=== PATIENT | female | born 1945 | race Caucasian/White ===

== ENCOUNTER → 2017-12-01 12:39 | Outpatient (CLI) | payer MEDICARE, SELFPAY ==
--- NOTE | 2017-12-01 12:40 | DI.MG.S_ITS ---
BILATERAL DIGITAL SCREENING MAMMOGRAM 3D/2D WITH CAD: 12/01/2017 CLINICAL: Routine screening. Comparison is made to exams dated: 10/25/2016 mammogram, 10/19/2015 mammogram, and 10/13/2014 mammogram - [facility]. The tissue of both breasts is heterogeneously dense. This may lower the sensitivity of mammography. Current study was also evaluated with a Computer Aided Detection (CAD) system. Bilateral breast implants are stable. No significant masses, calcifications, or other findings are seen in either breast. There has been no significant interval change. IMPRESSION: NEGATIVE There is no mammographic evidence of malignancy. A 1 year screening mammogram is recommended. This exam was interpreted at Station ID: [id number]. NOTE: For mammograms, a report in lay terms will be sent to the patient. Approximately 15% of breast malignancies will not be visualized mammographically. In the management of a palpable breast mass, a negative mammogram must not discourage biopsy of a clinically suspicious lesion. Electronically Signed By: Phil warren/brigitte:12/01/2017 16:47:24 letter sent: Normal Exam ACR BI-RADS Category 1: Negative 3341F
== END ==
PROVIDERS: Family Provider Family Medicine; PCP Family Medicine; Visit Provider Family Medicine
DX: Z12.31 Encounter for screening mammogram for malignant neoplasm of breast (principal)
CPT/HCPCS: 77063; 77067

== ENCOUNTER → 2017-12-04 07:08 | Outpatient (CLI) | payer MEDICARE, SELFPAY ==
[2017-12-04 08:17] LABS: Cholesterol 211 mg/dL (140-199); HDL Cholesterol 59 mg/dL (40-60); LDL Cholesterol Calculated 137 mg/dL (<100); Triglycerides 76 mg/dL (35-150)
[2017-12-04 08:18] LABS: Add Manual Diff / Slide Review NO; Basophils Percent Auto 0.9 % (0-2); Eosinophils Percent Auto 2.5 % (2-4); Hematocrit 43.1 % (36-46); Hemoglobin 14.7 g/dL (12.0-16.0); Lymphocytes Percent Auto 45.8 % (25-40); Mean Corpuscular HGB Conc 34.1 % (30-36); Mean Corpuscular Volume 96.9 fL (80-100); Monocytes Percent Auto 9.1 % (3-14); Neutrophils Absolute Auto 2200 /uL (3000-5900); Neutrophils Percent Auto 41.7 % (50-75); Platelet Count 245 X10^3/uL (150-400); Red Blood Cell Count 4.45 X10^6/uL (4.0-5.2); Red Cell Distribution Width 12.9 % (11.6-14.8); White Blood Cell Count 5.2 X10^3/uL (4.5-11.0)
[2017-12-04 09:37] LABS: TSH w/ Reflex to FT4 2.53 uIU/mL (0.47-4.68)
[2017-12-06 15:07] LABS: Parathyroid Hormone Int 63 pg/mL (14-64)
== END ==
PROVIDERS: PCP Family Medicine; Visit Provider Family Medicine
DX: E78.5 Hyperlipidemia, unspecified (principal); E03.9 Hypothyroidism, unspecified; E21.3 Hyperparathyroidism, unspecified
CPT/HCPCS: 36415; 80061; 83970; 84443; 85025

== ENCOUNTER → 2017-12-10 07:05 | Outpatient (CLI) | payer MEDICARE, SELFPAY ==
[2017-12-10 09:49] LABS: Alanine Aminotransferase 27 IU/L (9-52); Albumin 4.5 g/dL (3.5-5.0); Albumin Globulin Ratio 1.5 (1.0-2.8); Alkaline Phosphatase 65 U/L (38-126); Aspartate Aminotransferase 29 IU/L (14-36); BUN Creatinine Ratio 22.9 (6-22); Bilirubin Total 0.7 mg/dL (0.2-1.3); Blood Urea Nitrogen 16 mg/dL (7-17); Calcium 9.5 mg/dL (8.4-10.2); Carbon Dioxide 32 mmol/L (22-32); Chloride 100 mmol/L (98-107); Estimated Glomerular Filt Rate > 60.0 mL/min (>60); Glucose 85 mg/dL (80-110); HEMOLYSIS 16 (0-50); Potassium 4.3 mmol/L (3.4-5.1); Sodium 142 mmol/L (137-145); Total Protein 7.5 g/dL (6.3-8.2)
[2017-12-10 10:47] LABS: Free T3, Triiodothyronine Free 3.62 pg/mL (2.77-5.27); Free T4, Direct Thyroxine 1.34 ng/dL (0.78-2.19)
== END ==
PROVIDERS: Family Provider Family Medicine; PCP Family Medicine; Visit Provider Family Medicine
DX: E03.9 Hypothyroidism, unspecified (principal); E78.5 Hyperlipidemia, unspecified
CPT/HCPCS: 36415; 80053; 84439; 84481

== ENCOUNTER → 2018-02-18 09:48 | Outpatient (CLI) | payer MEDICARE, SELFPAY ==
[2018-02-20 18:36] LABS: Fecal Immunochemical Test NOT DETECTED
== END ==
PROVIDERS: Family Provider Family Medicine; PCP Family Medicine; Visit Provider Registered Nurse
DX: Z12.11 Encounter for screening for malignant neoplasm of colon (principal)
CPT/HCPCS: 82274

== ENCOUNTER → 2018-03-02 07:11 | Outpatient (CLI) | payer MEDICARE, SELFPAY ==
[2018-03-02 09:39] LABS: Cholesterol 219 mg/dL (140-199); HDL Cholesterol 64 mg/dL (40-60); LDL Cholesterol Calculated 142 mg/dL (<100); Triglycerides 66 mg/dL (35-150)
[2018-03-02 09:50] LABS: Free T3, Triiodothyronine Free 3.05 pg/mL (2.77-5.27); Free T4, Direct Thyroxine 1.14 ng/dL (0.78-2.19)
== END ==
PROVIDERS: PCP Family Medicine; Visit Provider Family Medicine
DX: E03.9 Hypothyroidism, unspecified (principal); E78.5 Hyperlipidemia, unspecified
CPT/HCPCS: 36415; 80061; 84439; 84443; 84481

== ENCOUNTER → 2018-03-04 14:13 | Outpatient (CLI) | payer MEDICARE, SELFPAY ==
--- NOTE | 2018-03-04 14:15 | DI.RAD.S_ITS ---
PROCEDURE: XR KNEE LT 3V INDICATIONS: Knee pain TECHNIQUE: 3 views of the knee were acquired. COMPARISON: None. FINDINGS: Bones: No fractures or dislocations. No suspicious bony lesions. Mild arthritic change all 3 compartments, no trauma. Soft tissues: No joint effusion. No suspicious soft tissue calcifications. 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 Dictated by: Bandar Olmedo M.D. on 03/09/2018 at 12:10 Approved by: Bandar Olmedo M.D. on 03/09/2018 at 12:10
--- NOTE | 2018-03-04 14:15 | DI.RAD.S_ITS ---
PROCEDURE: XR KNEE RT 3V INDICATIONS: Knee pain TECHNIQUE: 3 views of the knee were acquired. COMPARISON: None. FINDINGS: Bones: No fractures or dislocations. No suspicious bony lesions. Soft tissues: No joint effusion. No suspicious soft tissue calcifications. IMPRESSION: No trauma found. Minimal thinning of the medial compartment joint interspace. This indicates presence of only a mild degree of degenerative osteoarthritis. Dictated by: Bandar Olmedo M.D. on 03/04/2018 at 15:07 Approved by: Bandar Olmedo M.D. on 03/04/2018 at 15:07
== END ==
PROVIDERS: Family Provider Family Medicine; PCP Family Medicine; Visit Provider Registered Nurse
DX: M25.561 Pain in right knee (principal); M25.562 Pain in left knee; M17.0 Bilateral primary osteoarthritis of knee
CPT/HCPCS: 73562

== ENCOUNTER → 2018-07-17 12:47 | Outpatient (CLI) | payer MEDICARE, SELFPAY ==
[2018-07-17 14:42] LABS: Alanine Aminotransferase 27 IU/L (9-52); Albumin 4.3 g/dL (3.5-5.0); Albumin Globulin Ratio 1.4 (1.0-2.8); Alkaline Phosphatase 63 U/L (38-126); Aspartate Aminotransferase 26 IU/L (14-36); BUN Creatinine Ratio 31.7 (6-22); Bilirubin Total 0.2 mg/dL (0.2-1.3); Blood Urea Nitrogen 19 mg/dL (7-17); Calcium 9.2 mg/dL (8.4-10.2); Carbon Dioxide 30 mmol/L (22-32); Chloride 99 mmol/L (98-107); Estimated Glomerular Filt Rate > 60.0 mL/min (>60); Globulin 3.1 g/dL (1.7-4.1); Glucose 83 mg/dL (80-110); HEMOLYSIS < 15 (0-50); Potassium 3.9 mmol/L (3.4-5.1); Sodium 139 mmol/L (137-145); Total Protein 7.4 g/dL (6.3-8.2)
[2018-07-17 15:01] LABS: Free T3, Triiodothyronine Free 3.09 pg/mL (2.77-5.27)
[2018-07-17 15:14] LABS: Thyroid Stimulating Hormone 1.38 uIU/mL (0.47-4.68)
[2018-07-17 15:15] LABS: Vitamin D 25 Hydroxy (D3) 50.2 ng/mL (30.0-100.0)
[2018-07-21 14:08] LABS: Parathyroid Hormone Int 52 pg/mL (14-64)
== END ==
PROVIDERS: Family Provider Family Medicine; PCP Family Medicine; Visit Provider Family Medicine
DX: M85.852 Other specified disorders of bone density and structure, left thigh (principal); Z78.0 Asymptomatic menopausal state; Z87.891 Personal history of nicotine dependence
CPT/HCPCS: 36415; 77080; 80053; 82306; 83970; 84439; 84443; 84481

== ENCOUNTER → 2018-12-14 12:45 | Outpatient (CLI) | payer MEDICARE, SELFPAY ==
--- NOTE | 2018-12-14 | DI.MG.S_ITS ---
BILATERAL DIGITAL SCREENING MAMMOGRAM 3D/2D WITH CAD WITH AUGMENTATION: 12/14/2018 CLINICAL: Routine screening. Comparison is made to exams dated: 12/01/2017 mammogram, 10/25/2016 mammogram, and 10/19/2015 mammogram - [facility]. The tissue of both breasts is heterogeneously dense. This may lower the sensitivity of mammography. Current study was also evaluated with a Computer Aided Detection (CAD) system. Bilateral breast implants are stable. No significant masses, calcifications, or other findings are seen in either breast. There has been no significant interval change. IMPRESSION: NEGATIVE There is no mammographic evidence of malignancy. A 1 year screening mammogram is recommended. This exam was interpreted at Station ID: [id number]. NOTE: For mammograms, a report in lay terms will be sent to the patient. Approximately 15% of breast malignancies will not be visualized mammographically. In the management of a palpable breast mass, a negative mammogram must not discourage biopsy of a clinically suspicious lesion. Electronically Signed By: Susan motley/brigitte:12/14/2018 17:43:43 letter sent: Normal Exam ACR BI-RADS Category 1: Negative 3341F
== END ==
PROVIDERS: Family Provider Family Medicine; PCP Family Medicine; Visit Provider Family Medicine
DX: Z12.31 Encounter for screening mammogram for malignant neoplasm of breast (principal)
CPT/HCPCS: 77063; 77067

== ENCOUNTER → 2019-02-04 09:40 | Outpatient (CLI) | payer MEDICARE, SELFPAY ==
[2019-02-04 09:45] LABS: Bacteria Urine None Seen
[2019-02-04 11:00] LABS: Appearance Urine UA SL CLOUDY; Bilirubin Urine UA NEGATIVE (NEGATIVE); Color Urine UA YELLOW; Glucose Urine UA NEGATIVE (Negative); Ketones Urine UA NEGATIVE (NEGATIVE); Leukocyte Esterase Urine UA 3+ (NEGATIVE); Nitrite Urine UA NEGATIVE (Negative); Occult Blood Urine UA 3+ (Negative); Protein Urine UA NEGATIVE (Negative); Specific Gravity Urine UA <=1.005 (1.000-1.035); Urobilinogen Urine UA 0.2 E.U./dL (0.2)
[2019-02-04 11:03] LABS: pH Urine UA 7.5 (4.5-8.0)
[2019-02-04 11:10] LABS: Culture Indicated Urine Cult Not Indicated; RBC Urine 10-30/HPF (0-5/HPF); Squamous Epithelial Cell Urine 10-30 /HPF (0-5/HPF); Transitional Epi Cells Urine 1-5/HPF (0-5/HPF); WBC Urine 10-30/HPF (0-5/HPF)
== END ==
PROVIDERS: PCP Family Medicine; Visit Provider Specialist
DX: R39.9 Unspecified symptoms and signs involving the genitourinary system (principal)
CPT/HCPCS: 81001

== ENCOUNTER → 2019-02-15 11:25 | Outpatient (CLI) | payer MEDICARE, SELFPAY ==
[2019-02-15 12:25] LABS: Appearance Urine UA CLEAR; Bilirubin Urine UA NEGATIVE (NEGATIVE); Color Urine UA YELLOW; Glucose Urine UA NEGATIVE (Negative); Ketones Urine UA NEGATIVE (NEGATIVE); Leukocyte Esterase Urine UA 3+ (NEGATIVE); Nitrite Urine UA NEGATIVE (Negative); Occult Blood Urine UA 3+ (Negative); Protein Urine UA NEGATIVE (Negative); Specific Gravity Urine UA <=1.005 (1.000-1.035); Urobilinogen Urine UA 0.2 E.U./dL (0.2)
[2019-02-15 12:49] LABS: Bacteria Urine Moderate (10-30); Culture Indicated Urine Cult Not Indicated; RBC Urine 5-10/HPF (0-5/HPF); Squamous Epithelial Cell Urine 1-5 /HPF (0-5/HPF); Urine Comments CX ALREADY ORDERED; WBC Urine 10-30/HPF (0-5/HPF)
== END ==
PROVIDERS: PCP Family Medicine; Visit Provider Specialist
DX: R30.0 Dysuria (principal)
CPT/HCPCS: 81001; 87077; 87086; 87186

== ENCOUNTER → 2019-03-19 15:06 | Outpatient (CLI) | payer MEDICARE, SELFPAY ==
[2019-03-19 15:13] LABS: Bacteria Urine None Seen
[2019-03-19 15:31] LABS: Appearance Urine UA CLEAR; Bilirubin Urine UA NEGATIVE (NEGATIVE); Color Urine UA YELLOW; Glucose Urine UA NEGATIVE (Negative); Ketones Urine UA NEGATIVE (NEGATIVE); Leukocyte Esterase Urine UA NEGATIVE (NEGATIVE); Nitrite Urine UA NEGATIVE (Negative); Occult Blood Urine UA 1+ (Negative); Protein Urine UA NEGATIVE (Negative); Specific Gravity Urine UA <=1.005 (1.000-1.035); Urobilinogen Urine UA 0.2 E.U./dL (0.2)
[2019-03-19 15:43] LABS: Culture Indicated Urine Cult Not Indicated; RBC Urine 0-1/HPF (0-5/HPF); Squamous Epithelial Cell Urine 0-1 /HPF (0-5/HPF); WBC Urine 0-1/HPF (0-5/HPF)
== END ==
PROVIDERS: PCP Family Medicine; Visit Provider Specialist
DX: R39.9 Unspecified symptoms and signs involving the genitourinary system (principal)
CPT/HCPCS: 81001

== ENCOUNTER → 2019-04-20 07:11 | Outpatient (CLI) | payer MEDICARE, SELFPAY ==
[2019-04-20 08:13] LABS: Cholesterol 208 mg/dL (140-199); HDL Cholesterol 54 mg/dL (40-60); LDL Cholesterol Calculated 143 mg/dL (<100); Triglycerides 56 mg/dL (35-150); VLDL Cholesterol Calculated 11 mg/dL (2-30)
== END ==
PROVIDERS: PCP Family Medicine; Visit Provider Internal Medicine Cardiovascular Disease
DX: E78.2 Mixed hyperlipidemia (principal)
CPT/HCPCS: 36415; 80061

== ENCOUNTER → 2019-06-18 14:07 | Outpatient (CLI) | payer MEDICARE, SELFPAY ==
[2019-06-18 16:25] LABS: Thyroid Stimulating Hormone 2.23 uIU/mL (0.47-4.68)
== END ==
PROVIDERS: PCP Family Medicine; Visit Provider Family Medicine
DX: E03.9 Hypothyroidism, unspecified (principal); E55.9 Vitamin D deficiency, unspecified; L85.3 Xerosis cutis; R53.83 Other fatigue; Z90.49 Acquired absence of other specified parts of digestive tract; Z98.890 Other specified postprocedural states
CPT/HCPCS: 84443

== ENCOUNTER → 2019-06-29 09:40 | Outpatient (CLI) | payer MEDICARE, SELFPAY ==
[2019-07-01 13:55] LABS: Fecal Immunochemical Test NOT DETECTED (NOT DETECTED)
== END ==
PROVIDERS: PCP Family Medicine; Referring Provider Nurse Practitioner; Visit Provider Nurse Practitioner
DX: K92.1 Melena (principal)
CPT/HCPCS: 82274

== ENCOUNTER → 2020-01-14 14:24 | Outpatient (CLI) | payer MEDICARE, SELFPAY ==
--- NOTE | 2020-01-14 | DI.MG.S_ITS ---
BILATERAL DIGITAL SCREENING MAMMOGRAM 3D/2D WITH CAD WITH AUGMENTATION: 01/14/2020 CLINICAL: Routine screening. Comparison is made to exams dated: 12/14/2018 mammogram, 12/01/2017 mammogram, and 10/25/2016 mammogram - [facility]. The tissue of both breasts is heterogeneously dense. This may lower the sensitivity of mammography. Current study was also evaluated with a Computer Aided Detection (CAD) system. Bilateral breast implants are stable. No significant masses, calcifications, or other findings are seen in either breast. There has been no significant interval change. IMPRESSION: NEGATIVE There is no mammographic evidence of malignancy. A 1 year screening mammogram is recommended. This exam was interpreted at Station ID: [id number]. NOTE: For mammograms, a report in lay terms will be sent to the patient. Approximately 15% of breast malignancies will not be visualized mammographically. In the management of a palpable breast mass, a negative mammogram must not discourage biopsy of a clinically suspicious lesion. Electronically Signed By: Madhu Romano M.D., jr/brigitte:01/14/2020 17:30:31 letter sent: Normal Exam ACR BI-RADS Category 1: Negative 3341F
== END ==
PROVIDERS: PCP Family Medicine; Referring Provider Family Medicine; Visit Provider Family Medicine
DX: Z12.31 Encounter for screening mammogram for malignant neoplasm of breast (principal)
CPT/HCPCS: 77063; 77067

== ENCOUNTER → 2020-03-23 10:56 | Outpatient (CLI) | payer MEDICARE, SELFPAY ==
[2020-03-24 01:49] LABS: COVID19 Sendout Not Detected (Not Detect)
== END ==
PROVIDERS: PCP Family Medicine; Visit Provider Physician Assistant
DX: Z11.59 Encounter for screening for other viral diseases (principal)
CPT/HCPCS: 87635

== ENCOUNTER → 2020-06-26 06:59 | Outpatient (CLI) | payer MEDICARE, SELFPAY ==
[2020-06-26 09:12] LABS: Alanine Aminotransferase 26 IU/L (<35); Albumin 4.5 g/dL (3.5-5.0); Albumin Globulin Ratio 1.5 (1.0-2.8); Alkaline Phosphatase 66 U/L (38-126); Aspartate Aminotransferase 31 IU/L (14-36); BUN Creatinine Ratio 27.6 (6-22); Bilirubin Total 0.5 mg/dL (0.2-1.3); Blood Urea Nitrogen 16 mg/dL (7-17); Calcium 9.2 mg/dL (8.4-10.2); Carbon Dioxide 32 mmol/L (22-32); Chloride 101 mmol/L (98-107); Cholesterol 211 mg/dL (140-199); Estimated Glomerular Filt Rate > 60.0 mL/min (>60); Globulin 3.1 g/dL (1.7-4.1); Glucose 96 mg/dL (80-110); HDL Cholesterol 63 mg/dL (40-60); HEMOLYSIS < 15 (0-50); LDL Cholesterol Calculated 135 mg/dL (<100); Potassium 4.2 mmol/L (3.4-5.1); Sodium 138 mmol/L (137-145); Total Protein 7.6 g/dL (6.3-8.2); Triglycerides 66 mg/dL (35-150)
[2020-06-26 09:47] LABS: Vitamin D 25 Hydroxy (D3) 30.9 ng/mL (30.0-100.0)
[2020-06-26 10:02] LABS: TSH w/ Reflex to FT4 0.78 uIU/mL (0.47-4.68)
== END ==
PROVIDERS: PCP Family Medicine; Referring Provider Family Medicine; Visit Provider Family Medicine
DX: E03.9 Hypothyroidism, unspecified (principal); E55.9 Vitamin D deficiency, unspecified; E78.5 Hyperlipidemia, unspecified; M85.80 Other specified disorders of bone density and structure, unspecified site
CPT/HCPCS: 36415; 80053; 80061; 82306; 84443

== ENCOUNTER → 2021-05-08 10:14 | Outpatient (CLI) | payer MEDICARE, SELFPAY ==
--- NOTE | 2021-05-08 | DI.MG.S_ITS ---
BILATERAL DIGITAL SCREENING MAMMOGRAM 3D/2D WITH CAD WITH AUGMENTATION: 05/08/2021 CLINICAL: Routine screening. Comparison is made to exams dated: 01/14/2020 mammogram, 12/14/2018 mammogram, and 12/01/2017 mammogram - [facility]. There are scattered fibroglandular elements in both breasts. Current study was also evaluated with a Computer Aided Detection (CAD) system. Bilateral breast implants are stable. No significant masses, calcifications, or other findings are seen in either breast. There has been no significant interval change. IMPRESSION: NEGATIVE There is no mammographic evidence of malignancy. A 1 year screening mammogram is recommended. This exam was interpreted at Station ID: [id number]. NOTE: For mammograms, a report in lay terms will be sent to the patient. Approximately 15% of breast malignancies will not be visualized mammographically. In the management of a palpable breast mass, a negative mammogram must not discourage biopsy of a clinically suspicious lesion. Electronically Signed By: Susan motley/brigitte:05/08/2021 12:24:13 letter sent: Normal Exam ACR BI-RADS Category 1: Negative 3341F
== END ==
PROVIDERS: PCP Family Medicine; Referring Provider Family Medicine; Visit Provider Family Medicine
DX: Z12.31 Encounter for screening mammogram for malignant neoplasm of breast (principal)
CPT/HCPCS: 77063; 77067

== ENCOUNTER → 2021-07-02 08:17 | Outpatient (CLI) | payer MEDICARE, SELFPAY ==
[2021-07-02 09:45] LABS: Alanine Aminotransferase 20 IU/L (<35); Albumin 4.2 g/dL (3.5-5.0); Albumin Globulin Ratio 1.4 (1.0-2.8); Alkaline Phosphatase 59 U/L (38-126); Aspartate Aminotransferase 26 IU/L (14-36); BUN Creatinine Ratio 22.7 (6-22); Bilirubin Total 0.5 mg/dL (0.2-1.3); Blood Urea Nitrogen 15 mg/dL (7-17); Calcium 9.8 mg/dL (8.4-10.2); Carbon Dioxide 32 mmol/L (22-32); Chloride 104 mmol/L (98-107); Cholesterol 200 mg/dL (140-199); Estimated Glomerular Filt Rate > 60.0 mL/min (>60); Globulin 2.9 g/dL (1.7-4.1); Glucose 110 mg/dL (80-110); HDL Cholesterol 71 mg/dL (40-60); HEMOLYSIS < 15 (0-50); LDL Cholesterol Calculated 117 mg/dL (<100); Potassium 4.7 mmol/L (3.4-5.1); Sodium 141 mmol/L (137-145); Total Protein 7.1 g/dL (6.3-8.2); Triglycerides 58 mg/dL (35-150)
[2021-07-02 10:03] LABS: Vitamin D 25 Hydroxy (D3) 52.1 ng/mL (30.0-100.0)
[2021-07-02 10:18] LABS: TSH w/ Reflex to FT4 1.09 uIU/mL (0.47-4.68)
[2021-07-03 08:13] LABS: Fecal Immunochemical Test Negative (Negative)
== END ==
PROVIDERS: PCP Family Medicine; Referring Provider Family Medicine; Visit Provider Family Medicine
DX: E03.9 Hypothyroidism, unspecified (principal); E55.9 Vitamin D deficiency, unspecified; Z00.00 Encounter for general adult medical examination without abnormal findings
CPT/HCPCS: 36415; 80053; 80061; 82274; 82306; 84443

== ENCOUNTER → 2022-05-09 14:14 | Outpatient (CLI) | payer MEDICARE, SELFPAY ==
--- NOTE | 2022-05-09 14:19 | DI.MG.S_ITS ---
BILATERAL DIGITAL SCREENING MAMMOGRAM 3D/2D WITH CAD WITH AUGMENTATION: 05/09/2022 CLINICAL: Routine screening. Comparison is made to exams dated: 05/08/2021 mammogram, 01/14/2020 mammogram, and 12/14/2018 mammogram - [facility]. There are scattered areas of fibroglandular density in both breasts (category b / 25%-50% glandular tissue). Current study was also evaluated with a Computer Aided Detection (CAD) system. Bilateral breast implants are stable. No significant masses, calcifications, or other findings are seen in either breast. There has been no significant interval change. IMPRESSION: NEGATIVE There is no mammographic evidence of malignancy. A 1 year screening mammogram is recommended. Based on the Tyrer Cuzick model (a risk assessment model) the patient's lifetime risk is 3.4% and her 10 year risk is 0.0%. According to the ACR, ACS, and NCCN guidelines, an annual breast MRI exam along with mammogram is recommended if the patient's lifetime risk is 20% or greater. This exam was interpreted at Station ID: [id number]. NOTE: For mammograms, a report in lay terms will be sent to the patient. Approximately 15% of breast malignancies will not be visualized mammographically. In the management of a palpable breast mass, a negative mammogram must not discourage biopsy of a clinically suspicious lesion. Electronically Signed By: Johann pruitt/brigitte:05/09/2022 16:47:12 letter sent: Normal Exam ACR BI-RADS Category 1: Negative 3341F
== END ==
PROVIDERS: PCP Family Medicine; Referring Provider Family Medicine; Visit Provider Family Medicine
DX: Z12.31 Encounter for screening mammogram for malignant neoplasm of breast (principal)
CPT/HCPCS: 77063; 77067

== ENCOUNTER → 2022-07-18 07:12 | Outpatient (CLI) | payer MEDICARE, SELFPAY ==
[2022-07-18 08:11] LABS: Add Manual Diff / Slide Review NO; Basophils Absolute Auto 0 /uL (0-100); Basophils Percent Auto 0.6 % (0-2); Eosinophils Absolute Auto 100 /uL (0-450); Eosinophils Percent Auto 1.7 % (2-4); Hematocrit 45.1 % (36-46); Hemoglobin 14.9 g/dL (12.0-16.0); Lymphocytes Absolute Auto 2000 /uL (1100-4500); Lymphocytes Percent Auto 26.2 % (25-40); Mean Corpuscular HGB Conc 33.1 % (30-36); Mean Corpuscular Hemoglobin 32.4 PG (26-34); Monocytes Absolute Auto 600 /uL (0-900); Monocytes Percent Auto 7.8 % (3-14); Neutrophils Absolute Auto 4900 /uL (1500-7000); Neutrophils Percent Auto 63.7 % (50-75); Platelet Count 267 X10^3/uL (150-400); Red Cell Distribution Width 13.4 % (11.6-14.8); White Blood Cell Count 7.6 X10^3/uL (4.5-11.0)
[2022-07-18 08:56] LABS: Alanine Aminotransferase 26 IU/L (<35); Albumin 4.4 g/dL (3.5-5.0); Albumin Globulin Ratio 1.5 (1.0-2.8); Alkaline Phosphatase 63 U/L (38-126); Aspartate Aminotransferase 29 IU/L (14-36); Bilirubin Total 0.6 mg/dL (0.2-1.3); Blood Urea Nitrogen 16 mg/dL (7-17); Calcium 9.3 mg/dL (8.4-10.2); Carbon Dioxide 30 mmol/L (22-32); Chloride 99 mmol/L (98-107); Cholesterol 207 mg/dL (140-199); Estimated Glomerular Filt Rate > 60 mL/min (>60); Globulin 2.9 g/dL (1.7-4.1); Glucose 91 mg/dL (80-110); HDL Cholesterol 70 mg/dL (40-60); HEMOLYSIS < 15 (0-50); LDL Cholesterol Calculated 119 mg/dL (<100); Potassium 4.2 mmol/L (3.4-5.1); Sodium 137 mmol/L (137-145); Total Protein 7.3 g/dL (6.3-8.2); Triglycerides 90 mg/dL (35-150)
[2022-07-18 09:12] LABS: TSH w/ Reflex to FT4 1.27 uIU/mL (0.47-4.68)
== END ==
PROVIDERS: PCP Family Medicine; Referring Provider Family Medicine; Visit Provider Family Medicine
DX: E03.9 Hypothyroidism, unspecified (principal); E78.00 Pure hypercholesterolemia, unspecified; M35.00 Sjogren syndrome, unspecified; M85.80 Other specified disorders of bone density and structure, unspecified site
CPT/HCPCS: 36415; 80053; 80061; 84443; 85025

== ENCOUNTER → 2022-08-08 | Outpatient (CLI) | payer MEDICARE, SELFPAY ==
--- NOTE | 2022-08-08 10:52 | DI.RAD.S_ITS ---
Bone Density Report Name: AMAURY DURAN Age: 76 Sex: Female Ethnicity: White Date of : 1945 Indication: osteopenia; parental hip fracture; Referring Provider: YUMIKO LOWERY Study: Bone densitometry was performed. Exam Date: August 08, 2022 Accession number: [id number] Bone Density: Region BMD T-score Z-score Classification AP Spine(L1-L4) 1.034 -0.1 2.5 Normal Femoral Neck (Left) 0.689 -1.4 0.8 Osteopenia Total Hip (Left) 0.793 -1.2 0.8 Osteopenia Femoral Neck (Right) 0.851 0.0 2.3 Normal Total Hip (Right) 0.784 -1.3 0.7 Osteopenia Total Hip Mean 0.789 -1.3 0.8 Osteopenia World Health Organization criteria for BMD impression classify patients as: Normal (T-score at or above -1.0), Osteopenia (T-score between -1.0 and -2.5), or Osteoporosis (T-score at or below -2.5). 10-year Fracture Risk(1): Major Osteoporotic Fracture 20% Hip Fracture 11% Reported Risk Factors: [place] (), Neck BMD=0.689, BMI=21.9, parental fracture (1) FRAX(R) Version 3.08. Fracture probability calculated for an untreated patient. Fracture probability may be lower if the patient has received treatment. Previous Exams: -- Region Exam Age BMD T-score BMD Change BMD Change Date g/cm2 vs Baseline vs Previous -- AP Spine (L1-L4) 08/08/2022 76 1.034 -0.1 -0.050 (-4.6%)# -0.050 (-4.6%)# 07/17/2018 72 1.084 0.3 Total Hip(Left) 08/08/2022 76 0.793 -1.2 -0.011 (-1.4%)# -0.011 (-1.4%)# 07/17/2018 72 0.804 -1.1 Total Hip(Right) 08/08/2022 76 0.784 -1.3 0.030 (4.0%)# 0.030 (4.0%)# 07/17/2018 72 0.754 -1.5 -- *Denotes significance at 95% confidence level, LSC for AP Spine = 0.022 g/cm2, LSC for Total Hip = 0.027 g/cm2 # Denotes dissimilar scan types or analysis methods Impression: The patient has low bone mass, based on the Left Femoral Neck T-score. The patient has an estimated ten-year risk of hip fracture of 11% and an estimated ten-year risk of major fracture of 20%, based on the WHO FRAX algorithm. The patient has risk factors, including: parental hip fracture. No significant bone loss was observed. Discussion: BONE DENSITY IS LOW AT ONE OR MORE SKELETAL SITES. THE PATIENT'S BMD AND CLINICAL RISK FACTORS CONTRIBUTE TO THIS PATIENT'S HIGH RISK OF FRACTURE. This patient's lowest T-score is low at one or more skeletal sites. It meets the World Health Organization's (WHO) criteria for low bone mass (T-score between -1.0 and -2.5). The patient's 10-year risk of hip fracture and 10 year risk of a major osteoporotic fracture as calculated by FRAX exceeds the threshold where pharmacological therapy is recommended by the National Osteoporosis Foundation (NOF). However, all treatment decisions require clinical judgment and consideration of individual patient factors, including patient preferences, comorbidities, previous drug use, risk factors not captured in the FRAX model (e.g., frailty, falls, vitamin D deficiency, increased bone turnover, interval significant decline in bone density) and possible under or overestimation of fracture risk by FRAX. The patient should follow a healthful lifestyle (good nutrition with adequate calcium and vitamin D, and appropriate weight-bearing exercise). Follow-Up: Consider a repeat BMD and Vertebral Fracture Assessment (VFA) exam in 2 years or sooner if medically necessary, to reassess this patient's status. Reported by: LILO LARSON M.D on 08/08/2022 10:15:00 AM.
== END ==
LOC: RAD 10:52
PROVIDERS: PCP Family Medicine; Referring Provider Family Medicine; Visit Provider Family Medicine
DX: M85.852 Other specified disorders of bone density and structure, left thigh (principal); Z78.0 Asymptomatic menopausal state
CPT/HCPCS: 77080

== ENCOUNTER → 2022-08-27 13:46 | Outpatient (CLI) | payer MEDICARE, SELFPAY ==
[2022-08-28 09:59] LABS: Fecal Immunochemical Test Negative (Negative)
== END ==
PROVIDERS: PCP Family Medicine; Referring Provider Family Medicine; Visit Provider Family Medicine
DX: E03.9 Hypothyroidism, unspecified (principal); E78.00 Pure hypercholesterolemia, unspecified; M35.00 Sjogren syndrome, unspecified; M85.80 Other specified disorders of bone density and structure, unspecified site
CPT/HCPCS: 82274

== ENCOUNTER → 2023-01-08 07:38 | Outpatient (CLI) | payer MEDICARE, SELFPAY ==
[2023-01-08 08:36] LABS: Free T3, Triiodothyronine Free 3.46 pg/mL (2.77-5.27); Free T4, Direct Thyroxine 1.35 ng/dL (0.78-2.19)
[2023-01-08 08:49] LABS: TSH w/ Reflex to FT4 1.19 uIU/mL (0.47-4.68)
== END ==
PROVIDERS: PCP Family Medicine; Referring Provider Family Medicine; Visit Provider Family Medicine
DX: E03.9 Hypothyroidism, unspecified (principal)
CPT/HCPCS: 36415; 84439; 84443; 84481

== ENCOUNTER → 2023-07-02 07:54 | Outpatient (CLI) | payer MEDICARE, SELFPAY ==
--- NOTE | 2023-07-02 07:57 | DI.ECHO.S_ITS ---
[facility] +---------+ : : [address] : : : : [id number] : : : : Phone: [phone]---------+ Echocardiogram Report + + :Name: AMAURY DURAN Study Date: 07/02/2023 Height: 67 in : :[facility] ReadingLocation: Weight: 140 lb : : Gender: Female BSA: 1.7 m2 : :: 1945 Age: 77 yrs BP: 132/77 mmHg: :Reason For Study: LEFT BUNDLE BRANCH BLOCK : :Ordering Physician: DIONY, : :SUPA Performed By: Veronika Tang : :Referring: SUPA VORA : + + Interpretation Summary The left ventricle is normal in size and wall thickness. The left ventricular ejection fraction is normal. The ejection fraction is estimated to be 60-65%. The right ventricle is normal in size and function. There is mild to moderate mitral regurgitation. There is moderate tricuspid regurgitation. The right ventricular systolic pressure is estimated to be at least 37 mmHg based on an estimated right atrial pressure of 3 mm Hg. Mild atherosclerotic plaque(s) in the aortic arch. Procedure: A two-dimensional transthoracic echocardiogram with color flow and Doppler was performed. The study quality was technically adequate. There is no prior echocardiogram noted for this patient. The patient had a bundle branch block rhythm during the exam. The patient was in sinus rhythm with heart rates between 60-73 bpm during the exam. Left Ventricle: The left ventricle is normal in size and wall thickness. There is no thrombus. A false chord is noted (normal variant). The ejection fraction is estimated to be 60-65%. The left ventricular ejection fraction is normal. Septal motion is consistent with conduction abnormality. Diastolic parameters suggest a relaxation abnormality of the left ventricle, consistent with probable normal filling pressures. Right Ventricle: The right ventricle is normal in size and function. Atria: The left atrial size is normal. Right atrial size is normal. There is no Doppler evidence for an interatrial shunt. Mitral Valve: The mitral valve leaflets appear borderline thickened, but open well. There is mild to moderate mitral regurgitation. Aortic Valve: The aortic valve is trileaflet. The aortic valve opens well. There is no aortic valve stenosis. No aortic regurgitation is present. Tricuspid Valve: The tricuspid valve is normal. There is moderate tricuspid regurgitation. The right ventricular systolic pressure is estimated to be at least 37 mmHg based on an estimated right atrial pressure of 3 mm Hg. Pulmonic Valve: The pulmonic valve leaflets are thin and pliable; valve motion is normal. There is trace pulmonic regurgitation. Great Vessels: The aortic root is normal size. The dimensions of the ascending aorta are normal. Mild atherosclerotic plaque(s) in the aortic arch. The IVC is of normal diameter and collapses greater than 50% with a sniff. This suggests a low right atrial pressure of 3 mm Hg. Pericardium/ Pleura There is no pericardial effusion. There has been no significant change since the previous study. MMode/2D Measurements & Calculations LVIDd: 4.0 cm LVOT diam: 2.0 cm LVIDs: 2.9 cm Ao root diam: 3.1 cm FS: 26.2 % asc Aorta Diam: 3.0 cm IVSd: 0.67 cm Ao Arch Diam (Prox Trans): 2.3 cm LVPWd: 0.77 cm LV heck. diameter/BSA (cm/m^2): 2.3 LV sys. diameter/BSA (cm/m^2): 1.7 LA A2 area: 17.8 cm2 RA long axis: 5.2 cm LA A4 area: 13.8 cm2 RA area: 15.5 cm2 LA length (vol): 4.7 cm RA vol: 39.2 ml LA vol: 44.1 ml RA : 22.6 ml/m2 LA vol index: 25.4 ml/m2 IVC diam: 1.7 cm RVD1 (basal): 3.9 cm RVD2 (mid): 2.8 cm TAPSE: 2.0 cm Doppler Measurements & Calculations Ao V2 max: 156.3 cm/sec LVOT Max William: 133.3 cm/sec Ao V2 mean: 108.8 cm/sec LV V1 max P.1 mmHg Ao max P.8 mmHg LV V1 VTI: 29.6 cm Ao mean P.2 mmHg ERIKA(I,D): 2.8 cm2 Ao V2 VTI: 32.3 cm ERIKA(V,D): 2.6 cm2 sev ratio: 0.92 ERIKA indexed to BSA (cm^2/m^2): 1.6 MV E max william: 46.1 cm/sec TR max william: 291.6 cm/sec MV A max william: 70.3 cm/sec TR max P.0 mmHg MV E/A: 0.66 PA V2 max: 113.2 cm/sec Med Peak E' William: 4.7 cm/sec PA V2 mean: 79.7 cm/sec E/E' med: 9.7 PA mean P.8 mmHg Lat Peak E' William: 5.9 cm/sec PA pr(Accel): 39.6 mmHg E/E' lat: 7.8 E/e' average: 8.8 MV dec time: 0.34 sec SV(LVOT): 90.4 ml Reading Physician:04:32 PM
== END ==
PROVIDERS: PCP Family Medicine; Referring Provider Internal Medicine Cardiovascular Disease; Visit Provider Internal Medicine Cardiovascular Disease
DX: I08.1 Rheumatic disorders of both mitral and tricuspid valves (principal); I70.0 Atherosclerosis of aorta; I44.7 Left bundle-branch block, unspecified
CPT/HCPCS: 93306

== ENCOUNTER → 2023-07-11 | Outpatient (CLI) | payer MEDICARE, SELFPAY ==
--- NOTE | 2023-07-11 14:04 | DI.MG.S_ITS ---
Patient Name: AMAURY DURAN date: 1945 Sex: F Attending Physician: George Indications: Date: 07/11/2023 15:03 At the request of: YUMIKO LOWERY Procedure: MM screening mammo implant BI BILATERAL DIGITAL SCREENING MAMMOGRAM 3D/2D WITH CAD WITH AUGMENTATION: 07/11/2023 CLINICAL: Routine screening. Comparison is made to exams dated: 05/09/2022 mammogram, 05/08/2021 mammogram, and 01/14/2020 mammogram - [facility]. Both breasts are heterogeneously dense, which may obscure small masses (category c / 51-75% glandular tissue). Current study was also evaluated with a Computer Aided Detection (CAD) system. Bilateral breast implants are stable. No significant masses, calcifications, or other findings are seen in either breast. There has been no significant interval change. IMPRESSION: NEGATIVE There is no mammographic evidence of malignancy. A 1 year screening mammogram is recommended. Based on the Tyrer Cuzick model (a risk assessment model) the patient's lifetime risk is 4.5% and her 10 year risk is 0.0%. According to the ACR, ACS, and NCCN guidelines, an annual breast MRI exam along with mammogram is recommended if the patient's lifetime risk is 20% or greater. This exam was interpreted at Station ID: [id number]. Continued Report - Page 2 of 2 Patient Name: AMAURY DURAN date: 1945 Sex: F Attending Physician: George Indications: Date: 07/11/2023 15:03 At the request of: YUMIKO LOWERY Procedure: MM screening mammo implant BI NOTE: For mammograms, a report in lay terms will be sent to the patient. Approximately 15% of breast malignancies will not be visualized mammographically. In the management of a palpable breast mass, a negative mammogram must not discourage biopsy of a clinically suspicious lesion. Electronically Signed By: Venkatesh benton/brigitte:07/11/2023 15:03:33 letter sent: Normal Exam ACR BI-RADS Category 1: Negative 3341F
== END ==
PROVIDERS: PCP Family Medicine; Referring Provider Family Medicine; Visit Provider Family Medicine
DX: Z12.31 Encounter for screening mammogram for malignant neoplasm of breast (principal); R92.333 Mammographic heterogeneous density, bilateral breasts
CPT/HCPCS: 77063; 77067

== ENCOUNTER → 2023-07-25 06:57 | Outpatient (CLI) | payer MEDICARE, SELFPAY ==
[2023-07-25 08:16] LABS: Add Manual Diff / Slide Review NO; Basophils Absolute Auto 0 /uL (0-100); Basophils Percent Auto 0.7 % (0-2); Eosinophils Absolute Auto 100 /uL (0-450); Eosinophils Percent Auto 1.4 % (2-4); Hematocrit 42.1 % (36-46); Hemoglobin 14.2 g/dL (12.0-16.0); Lymphocytes Absolute Auto 2000 /uL (1100-4500); Lymphocytes Percent Auto 28.3 % (25-40); Mean Corpuscular HGB Conc 33.8 % (30-36); Mean Corpuscular Volume 97.9 fL (80-100); Monocytes Absolute Auto 500 /uL (0-900); Monocytes Percent Auto 6.9 % (3-14); Neutrophils Absolute Auto 4500 /uL (1500-7000); Neutrophils Percent Auto 62.7 % (50-75); Platelet Count 255 X10^3/uL (150-400); Red Cell Distribution Width 13.1 % (11.6-14.8); White Blood Cell Count 7.1 X10^3/uL (4.5-11.0)
[2023-07-25 09:32] LABS: Alanine Aminotransferase 31 IU/L (<35); Albumin 4.1 g/dL (3.5-5.0); Albumin Globulin Ratio 1.4 (1.0-2.8); Alkaline Phosphatase 53 U/L (38-126); Aspartate Aminotransferase 33 IU/L (14-36); BUN Creatinine Ratio 26.6 (6-22); Bilirubin Total 0.6 mg/dL (0.2-1.3); Blood Urea Nitrogen 17 mg/dL (7-17); Calcium 9.6 mg/dL (8.4-10.2); Carbon Dioxide 31 mmol/L (22-32); Chloride 104 mmol/L (98-107); Cholesterol 207 mg/dL (140-199); Estimated Glomerular Filt Rate > 60 mL/min (>60); Globulin 2.9 g/dL (1.7-4.1); Glucose 88 mg/dL (80-110); HDL Cholesterol 69 mg/dL (40-60); HEMOLYSIS < 15 (0-50); LDL Cholesterol Calculated 125 mg/dL (<100); Potassium 4.2 mmol/L (3.4-5.1); Sodium 139 mmol/L (137-145); Triglycerides 63 mg/dL (35-150)
[2023-07-25 09:49] LABS: Vitamin D 25 Hydroxy (D3) 45.6 ng/mL (30.0-100.0)
[2023-07-25 10:02] LABS: TSH w/ Reflex to FT4 3.66 uIU/mL (0.47-4.68)
== END ==
PROVIDERS: PCP Family Medicine; Referring Provider Family Medicine; Visit Provider Family Medicine
DX: E03.9 Hypothyroidism, unspecified (principal); E55.9 Vitamin D deficiency, unspecified
CPT/HCPCS: 36415; 80053; 80061; 82306; 84443; 85025

== ENCOUNTER → 2023-08-05 14:06 | Outpatient (CLI) | payer MEDICARE, SELFPAY ==
--- NOTE | 2023-08-05 14:09 | DI.RAD.S_ITS ---
PROCEDURE: XR HIP W PEL IF DONE LT 2V INDICATIONS: left hip pain chronic TECHNIQUE: AP pelvis with lateral view(s) of the left hip(s). COMPARISON: None. FINDINGS: Bones: No fractures or dislocations. Pelvic ring appears intact. No suspicious bony lesions. Severe degenerative arthritis of the right hip and moderate degenerative arthritis of the left hip. Soft tissues: The visualized bowel gas pattern is normal. No suspicious soft tissue calcifications. IMPRESSION: Bilateral degenerative arthritis of the hips, right greater than left. Dictated by: Mickey Tejeda M.D. on 08/05/2023 at 15:13 Approved by: Mickey Tejeda M.D. on 08/05/2023 at 15:14
== END ==
PROVIDERS: PCP Family Medicine; Referring Provider Family Medicine; Visit Provider Family Medicine
DX: M16.0 Bilateral primary osteoarthritis of hip (principal); M11.20 Other chondrocalcinosis, unspecified site; M25.552 Pain in left hip; G89.29 Other chronic pain
CPT/HCPCS: 73502

== ENCOUNTER → 2023-09-15 15:43 | Outpatient (CLI) | payer MEDICARE, SELFPAY ==
[2023-09-15 18:20] LABS: Erythrocyte Sedimentation Rate 6 MM/HR (0-20)
[2023-09-15 18:44] LABS: C-Reactive Protein Quant < 0.5 mg/dL (<1.0)
[2023-09-15 18:56] LABS: Free T3, Triiodothyronine Free 4.12 pg/mL (2.77-5.27); Free T4, Direct Thyroxine 1.54 ng/dL (0.78-2.19)
[2023-09-15 18:59] LABS: Rheumatoid Factor < 8.6 IU/mL (<12.0)
[2023-09-15 19:10] LABS: TSH w/ Reflex to FT4 0.34 uIU/mL (0.47-4.68)
[2023-09-17 20:27] LABS: CCP Antibodies IgG/IgA 0 units (0-19)
[2023-09-17 20:35] LABS: Calcium 9.3 mg/dL (8.7-10.3); Parathyroid Hormone, Intact 61 pg/mL (15-65)
== END ==
PROVIDERS: PCP Family Medicine; Referring Provider Family Medicine; Visit Provider Family Medicine
DX: M11.20 Other chondrocalcinosis, unspecified site (principal); E03.9 Hypothyroidism, unspecified; M35.00 Sjogren syndrome, unspecified; M79.0 Rheumatism, unspecified
CPT/HCPCS: 36415; 82310; 83970; 84439; 84443; 84481; 85651; 86038; 86140; 86200; 86430

== ENCOUNTER → 2024-03-18 16:06 | Outpatient (CLI) | payer MEDICARE, SELFPAY ==
--- NOTE | 2024-03-18 16:09 | DI.RAD.S_ITS ---
PROCEDURE: XR KNEE RT 3V INDICATIONS: Continued swelling/bruising after injury TECHNIQUE: 3 views of the knee were acquired. COMPARISON: None. FINDINGS: Bones: No fractures or dislocations. No suspicious bony lesions. Tricompartmental joint space narrowing with associated osteophytosis. Soft tissues: Small joint effusion. No suspicious soft tissue calcifications. Chondrocalcinosis. IMPRESSION: No acute bony abnormality or significant effusion. [id number] tricompartmental osteoarthritis. Kellgren-Prosper Grade 2. Chondrocalcinosis, which can be seen in the setting of CPPD, aging, and parathyroid disorders. Dictated by: Sohail Chamorro M.D. on 03/18/2024 at 17:13 Approved by: Sohail Chamorro M.D. on 03/18/2024 at 17:14
--- NOTE | 2024-03-18 16:09 | DI.RAD.S_ITS ---
PROCEDURE: XR KNEE LT 3V INDICATIONS: Continued swelling/bruising after injury TECHNIQUE: 3 views of the knee were acquired. COMPARISON: None. FINDINGS: Bones: No fractures or dislocations. No suspicious bony lesions. Tricompartmental joint space narrowing with associated osteophytosis. Soft tissues: Small joint effusion. No suspicious soft tissue calcifications. Chondrocalcinosis. IMPRESSION: [id number] tricompartmental osteoarthritis. Kellgren-Prosper Grade 2. Chondrocalcinosis, which can be seen in the setting of CPPD, aging, and parathyroid disorders. No acute bony abnormality. Small knee joint effusion. Dictated by: Sohail Chamorro M.D. on 03/18/2024 at 17:12 Approved by: Sohail Chamorro M.D. on 03/18/2024 at 17:13
== END ==
PROVIDERS: PCP Family Medicine; Referring Provider Family Medicine; Visit Provider Family Medicine
DX: S89.92XA Unspecified injury of left lower leg, initial encounter (principal); S89.91XA Unspecified injury of right lower leg, initial encounter; M25.461 Effusion, right knee; M25.462 Effusion, left knee; M17.0 Bilateral primary osteoarthritis of knee; M11.262 Other chondrocalcinosis, left knee; M11.261 Other chondrocalcinosis, right knee
CPT/HCPCS: 73562

== ENCOUNTER → 2024-04-09 07:08 | Outpatient (CLI) | payer MEDICARE, SELFPAY ==
[2024-04-09 08:00] LABS: Alanine Aminotransferase 32 IU/L (<35); Albumin 4.4 g/dL (3.5-5.0); Albumin Globulin Ratio 1.6 (1.0-2.8); Alkaline Phosphatase 53 U/L (38-126); Aspartate Aminotransferase 35 IU/L (14-36); BUN Creatinine Ratio 26.6 (6-22); Bilirubin Total 0.6 mg/dL (0.2-1.3); Blood Urea Nitrogen 17 mg/dL (7-17); Calcium 9.1 mg/dL (8.4-10.2); Carbon Dioxide 26 mmol/L (22-32); Chloride 104 mmol/L (98-107); Cholesterol 202 mg/dL (140-199); Estimated Glomerular Filt Rate > 60 mL/min (>60); Globulin 2.8 g/dL (1.7-4.1); Glucose 115 mg/dL (80-110); HDL Cholesterol 69 mg/dL (40-60); HEMOLYSIS < 15 (0-50); LDL Cholesterol Calculated 112 mg/dL (<100); Potassium 3.9 mmol/L (3.4-5.1); Sodium 138 mmol/L (137-145); Total Protein 7.2 g/dL (6.3-8.2); Triglycerides 103 mg/dL (35-150)
[2024-04-09 08:12] LABS: Add Manual Diff / Slide Review NO; Basophils Absolute Auto 0 /uL (0-100); Basophils Percent Auto 0.7 % (0-2); Eosinophils Absolute Auto 200 /uL (0-450); Eosinophils Percent Auto 2.5 % (2-4); Hematocrit 41.9 % (36-46); Hemoglobin 14.2 g/dL (12.0-16.0); Lymphocytes Absolute Auto 1800 /uL (1100-4500); Lymphocytes Percent Auto 28.1 % (25-40); Mean Corpuscular Hemoglobin 33.2 PG (26-34); Mean Corpuscular Volume 97.8 fL (80-100); Monocytes Absolute Auto 400 /uL (0-900); Monocytes Percent Auto 6.7 % (3-14); Neutrophils Absolute Auto 4100 /uL (1500-7000); Platelet Count 250 X10^3/uL (150-400); Red Blood Cell Count 4.28 X10^6/uL (4.0-5.2); Red Cell Distribution Width 13.3 % (11.6-14.8); White Blood Cell Count 6.5 X10^3/uL (4.5-11.0)
[2024-04-09 08:16] LABS: Vitamin D 25 Hydroxy (D3) 46.5 ng/mL (30.0-100.0)
[2024-04-09 08:30] LABS: TSH w/ Reflex to FT4 0.23 uIU/mL (0.47-4.68)
[2024-04-09 08:57] LABS: Free T4, Direct Thyroxine 1.14 ng/dL (0.78-2.19)
[2024-04-10 09:13] LABS: Calcium 9.4 mg/dL (8.7-10.3); Parathyroid Hormone, Intact 46 pg/mL (15-65)
== END ==
LOC: LAB 07:09
PROVIDERS: PCP Family Medicine; Referring Provider Family Medicine; Visit Provider Family Medicine
DX: E03.9 Hypothyroidism, unspecified (principal); M85.80 Other specified disorders of bone density and structure, unspecified site; E55.9 Vitamin D deficiency, unspecified; M11.20 Other chondrocalcinosis, unspecified site; M15.9 Polyosteoarthritis, unspecified
CPT/HCPCS: 36415; 80053; 80061; 82306; 82310; 83735; 83970; 84439; 84443; 85025

== ENCOUNTER → 2024-04-29 13:22 | Outpatient (CLI) | payer MEDICARE, SELFPAY ==
--- NOTE | 2024-04-29 13:23 | DI.RAD.S_ITS ---
PROCEDURE: XR KNEE LT 3V INDICATIONS: fall on shale in 03/18, pain/bump to top of knee cap TECHNIQUE: 3 views of the knee were acquired. COMPARISON: [facility], , XR KNEE LT 3V, 03/18/2024, 16:16. FINDINGS: Bones: No fractures or dislocations. No suspicious bony lesions. Moderate tricompartmental osteoarthrosis of the left knee. Prominent osteophyte at the superior pole of the patella . Soft tissues: Small joint effusion. No suspicious soft tissue calcifications. Chondrocalcinosis of the lateral femorotibial compartment. Prominent soft tissue anterior to the patella may be related to prepatellar bursitis. IMPRESSION: Left knee without acute osseous abnormalities. Moderate tricompartmental osteoarthrosis with superior pole patellar osteophyte. Prominent anterior knee soft tissue swelling which may be related to prepatellar bursitis. Dictated by: Venkatesh Escobar M.D. on 04/30/2024 at 2:11 Approved by: Venkatesh Escobar M.D. on 04/30/2024 at 2:14
== END ==
PROVIDERS: PCP Family Medicine; Referring Provider Physician Assistant; Visit Provider Physician Assistant
DX: M17.12 Unilateral primary osteoarthritis, left knee (principal); M11.262 Other chondrocalcinosis, left knee; M25.462 Effusion, left knee; M25.562 Pain in left knee; M79.89 Other specified soft tissue disorders
CPT/HCPCS: 73562

== ENCOUNTER → 2024-05-05 13:52 | Outpatient (CLI) | payer MEDICARE, SELFPAY ==
--- NOTE | 2024-05-05 13:54 | DI.ECHO.S_ITS ---
[facility] : : [address] : : [address] : : [id number] : : Phone: [phone] Echocardiogram Report + + :Name: AMAURY DURAN Study Date: 05/05/2024 Height: 66.5 in: :[facility] ReadingLocation: Weight: 138 lb : : Gender: Female BSA: 1.7 m2 : :: 1945 Age: 78 yrs BP: 129/73 mmHg: :Reason For Study: NONRHEUMATIC TRICUSPID VALVE REGURGITATION : :Ordering Physician: DIONY, : :SUPA Performed By: Veronika Tang : :Referring: SUPA VORA : + + Interpretation Summary The left ventricle is normal in size. The left ventricular ejection fraction is normal. The ejection fraction is estimated to be 60-65%. There has been no significant change in LVEF since the previous exam. The right ventricle is normal in size and function. There is mild to moderate mitral regurgitation. Compared to the prior echo study, there has been no change in the severity of mitral regurgitation. There is moderate tricuspid regurgitation. Compared to the prior echo exam, there has been no change in TR severity. The right ventricular systolic pressure is estimated to be at least 35 mmHg based on an estimated right atrial pressure of 3 mm Hg. Previously 37 mmHg. Procedure: A two-dimensional transthoracic echocardiogram with color flow and Doppler was performed. The study quality was technically adequate. Comparison is made with the echocardiogram of 07/02/2023. The patient had a bundle branch block rhythm during the exam. The patient was in sinus rhythm with heart rates between 63-70 bpm during the exam. Left Ventricle: Proximal septal thickening is noted. The left ventricle is normal in size. There is no thrombus. The ejection fraction is estimated to be 60-65%. The left ventricular ejection fraction is normal. There has been no significant change since the previous exam. Septal motion is consistent with conduction abnormality. Diastolic parameters suggest a relaxation abnormality of the left ventricle, consistent with probable normal filling pressures. Right Ventricle: The right ventricle is normal in size and function. Atria: The left atrial size is normal. There has been no significant change since the previous study. Right atrial size is normal. There is no Doppler evidence for an interatrial shunt. Mitral Valve: The mitral valve leaflets appear borderline thickened, but open well. There is mild mitral annular calcification. There is no evidence of mitral valve prolapse. There is no mitral valve stenosis. There is mild to moderate mitral regurgitation. Compared to the prior echo study, there has been no change in the severity of mitral regurgitation. Aortic Valve: The aortic valve is trileaflet. The aortic valve opens well. There is no aortic valve stenosis. No aortic regurgitation is present. Tricuspid Valve: The tricuspid valve is normal. There is moderate tricuspid regurgitation. The right ventricular systolic pressure is estimated to be at least 35 mmHg based on an estimated right atrial pressure of 3 mm Hg. Compared to the prior echo exam, there has been no change in TR severity. Pulmonic Valve: The pulmonic valve leaflets are thin and pliable; valve motion is normal. There is no pulmonic valvular regurgitation. Great Vessels: The aortic root is normal size. The dimensions of the ascending aorta are normal. The IVC is of normal diameter and collapses greater than 50% with a sniff. This suggests a low right atrial pressure of 3 mm Hg. Pericardium/ Pleura There is no pericardial effusion. There is an anterior echo-free space consistent with a fat pad. There is no pleural effusion. MMode/2D Measurements & Calculations LVIDd: 4.0 cm LVOT diam: 2.0 cm LVIDs: 3.1 cm Ao root diam: 2.9 cm FS: 23.6 % asc Aorta Diam: 2.9 cm IVSd: 0.68 cm Ao Arch Diam (Prox Trans): 2.7 cm LVPWd: 0.81 cm LV heck. diameter/BSA (cm/m^2): 2.4 LV sys. diameter/BSA (cm/m^2): 1.8 LA A2 area: 16.1 cm2 RA long axis: 5.4 cm LA A4 area: 12.0 cm2 RA area: 16.5 cm2 LA length (vol): 4.4 cm RA vol: 42.9 ml LA vol: 37.7 ml RA : 24.9 ml/m2 LA vol index: 21.9 ml/m2 IVC diam: 1.5 cm RVD1 (basal): 3.5 cm RVD2 (mid): 2.6 cm TAPSE: 2.3 cm Doppler Measurements & Calculations Ao V2 max: 125.9 cm/sec LVOT Max William: 117.7 cm/sec Ao V2 mean: 87.8 cm/sec LV V1 max P.5 mmHg Ao max P.3 mmHg LV V1 VTI: 28.5 cm Ao mean P.4 mmHg ERIKA(I,D): 3.0 cm2 Ao V2 VTI: 29.1 cm ERIKA(V,D): 2.8 cm2 sev ratio: 0.98 ERIKA indexed to BSA (cm^2/m^2): 1.7 MV E max william: 63.1 cm/sec TR max william: 282.7 cm/sec MV A max william: 85.7 cm/sec TR max P.0 mmHg MV E/A: 0.74 PA V2 max: 93.7 cm/sec Med Peak E' William: 5.0 cm/sec PA V2 mean: 62.6 cm/sec E/E' med: 12.7 PA mean P.8 mmHg Lat Peak E' William: 8.4 cm/sec PA pr(Accel): 51.6 mmHg E/E' lat: 7.5 E/e' average: 10.1 MV dec time: 0.25 sec MVA(VTI): 3.3 cm2 MV V2 mean: 65.4 cm/sec SV(LVOT): 86.0 ml MV mean P.9 mmHg MV V2 VTI: 26.3 cm Reading Physician:10:17 AM
== END ==
PROVIDERS: PCP Family Medicine; Referring Provider Internal Medicine Cardiovascular Disease; Visit Provider Internal Medicine Cardiovascular Disease
DX: I08.1 Rheumatic disorders of both mitral and tricuspid valves (principal)
CPT/HCPCS: 93306

== ENCOUNTER 2024-06-08 13:20 | Emergency (ER) | payer MEDICARE, SELFPAY ==
[2024-06-08 13:41] VITALS: BP 170/79; PULSE 85; RESP 17; TEMP 36.5; O2SAT 98; BMI 21.1
--- NOTE | 2024-06-08 13:46 | DI.RAD.S_ITS ---
PROCEDURE: XR CHEST 1V INDICATIONS: chest pain TECHNIQUE: One view of the chest was acquired. COMPARISON: None. FINDINGS: Surgical changes and devices: None. Lungs and pleura: Lungs are clear. No pleural effusions or pneumothorax. Mediastinum: Mediastinal contours appear normal. Heart size is normal. Bones and chest wall: No suspicious bony lesions. Overlying soft tissues appear unremarkable. IMPRESSION: No acute cardiopulmonary pathology. Dictated by: Chip Tate M.D. on 06/08/2024 at 14:23 Approved by: Chip Tate M.D. on 06/08/2024 at 14:24
--- NOTE | 2024-06-08 13:46 | EKG_ITS ---
[facility] [address] [place] [address] Test Date: 2024-06-08 Pat Name: Judy Ackerman Department: [facility] Room: Gender: Female Maintenance Coordinator: rhina salmeron : 1945 Requested By: Order Number: [id number] Reading MD: Jonny Winn MD Measurements Intervals [place] Rate: 80 P: 64 NH: 164 QRS: -10 QRSD: 132 T: 87 QT: 436 QTc: 502 Interpretive Statements Normal sinus rhythm Possible Left atrial enlargement Left bundle branch block NO PRIOR TRACING Electronically Signed On 06-09-2024 8:42:18 PST by Jonny Winn MD
--- NOTE | 2024-06-08 14:01 | PC.NURSE ---
Patient seen at ENT yesterday states the doctor had difficulty assessing her ears, created pain yesterday and tenderness today. Noticed symptoms worse after lying flat of floor and attempting to get up off floor. Denies chest pain or SOB.
[2024-06-08 14:07] LABS: Add Manual Diff / Slide Review NO; Basophils Absolute Auto 0 /uL (0-100); Basophils Percent Auto 0.4 % (0-2); Eosinophils Absolute Auto 0 /uL (0-450); Eosinophils Percent Auto 0.3 % (2-4); Hematocrit 44.8 % (36-46); Lymphocytes Absolute Auto 1500 /uL (1100-4500); Lymphocytes Percent Auto 15.2 % (25-40); Mean Corpuscular HGB Conc 33.6 % (30-36); Mean Corpuscular Hemoglobin 32.8 PG (26-34); Mean Corpuscular Volume 97.6 fL (80-100); Monocytes Absolute Auto 400 /uL (0-900); Monocytes Percent Auto 4.2 % (3-14); Neutrophils Absolute Auto 7800 /uL (1500-7000); Neutrophils Percent Auto 79.9 % (50-75); Platelet Count 328 X10^3/uL (150-400); Red Blood Cell Count 4.59 X10^6/uL (4.0-5.2); Red Cell Distribution Width 12.9 % (11.6-14.8); White Blood Cell Count 9.8 X10^3/uL (4.5-11.0)
[2024-06-08 14:13] LABS: Prothrombin Time 11.5 SECONDS (9.4-12.5)
[2024-06-08 14:16] LABS: PTT Partial Thromboplastin Tim 32 SECONDS (25.1-36.5)
[2024-06-08 14:18] LABS: Alanine Aminotransferase 28 IU/L (<35); Albumin 4.7 g/dL (3.5-5.0); Albumin Globulin Ratio 1.5 (1.0-2.8); Alkaline Phosphatase 71 U/L (38-126); Aspartate Aminotransferase 35 IU/L (14-36); BUN Creatinine Ratio 33.3 (6-22); Bilirubin Total 0.4 mg/dL (0.2-1.3); Blood Urea Nitrogen 20 mg/dL (7-17); Calcium 9.3 mg/dL (8.4-10.2); Carbon Dioxide 28 mmol/L (22-32); Chloride 98 mmol/L (98-107); Creatine Kinase 62 U/L (30-135); Estimated Glomerular Filt Rate > 60 mL/min (>60); Globulin 3.2 g/dL (1.7-4.1); Glucose 113 mg/dL (80-110); HEMOLYSIS < 15 (0-50); Lipase 92 U/L (23-300); Potassium 4.1 mmol/L (3.4-5.1); Sodium 134 mmol/L (137-145); Total Protein 7.9 g/dL (6.3-8.2)
[2024-06-08 14:29] LABS: NT-proBNP (BNP-Adult 18+) 193 pg/mL (<450); Troponin I < 0.012 ng/mL (0.01-0.034)
--- NOTE | 2024-06-08 14:34 | ED.GENADULT ---
HPI - General Adult General Chief complaint: Dizziness Stated complaint: (2) Dizzy spells this morning and fainted this am. Time Seen by Provider: 06/08/24 14:23 Source: patient Mode of arrival: Ambulatory History of Present Illness HPI narrative: 78-year-old woman with a history of hypothyroidism, left bundle branch block tricuspid valve regurgitation with no significant atherosclerotic cardiac burden, osteoarthritis presents with increasing dizziness and a syncopal episode this morning. She describes recently resolve upper respiratory infection, an audiology visit yesterday with some mild hearing loss and serous effusions noted. When she sat up from bed this morning she had significant dizziness. She was able to eventually get up go about her day has gone for 2 mi walk without any difficulties. She laid down on the floor after her walk to do her knee rehabilitation exercises and had such significant dizziness with that position change that she felt that she almost passed out. There was no chest pain, dyspnea, no palpitations no abdominal pain. She was nauseated with the acute dizziness but did not vomit. Related Data Home Medications Medication Instructions Recorded Confirmed polyethylene glycol 3350 17 PO 01/29/18 04/29/24 gram/dose oral powder (Miralax) Previous Rx's Medication Instructions Recorded CMP Estriol Vaginal Pearls 1mg 1 mg vaginal 2XW HRT #30 days 07/25/22 trazodone 50 mg tablet 50 mg PO BEDTIME PRN insomnia #30 05/08/23 tabs levothyroxine 112 mcg tablet 112 mcg PO DAILY #90 tabs 08/06/23 liothyronine 5 mcg tablet 7.5 mcg (1.5 x 5 mcg) PO DAILY 12/09/23 #135 tabs celecoxib 200 mg capsule (Celebrex) 200 mg PO Q DAY #90 caps 02/04/24 Estradiol Vaginal Cream 1 mg topical 2XW #2 mos 03/25/24 acyclovir 400 mg tablet See Rx Instructions .Route 03/30/24 .COMPLEX #60 tabs tretinoin 0.025 % topical gel 1 applic topical BEDTIME Acne #45 04/26/24 (Retin-A) grams meclizine 25 mg tablet 25 mg PO BID PRN dizziness #30 tabs 06/08/24 Allergies Allergy/AdvReac Type Severity Reaction Status Date / Time kiwi Allergy Severe anaphlaxis Verified 06/08/24 13:41 Sulfa (Sulfonamide Allergy Intermediate Hives Verified 06/08/24 13:41 Antibiotics) ciprofloxacin [From Cipro] AdvReac bad for Verified 06/08/24 13:41 joints wine AdvReac throat Uncoded 06/08/24 13:41 clogs up and I lose my voice Review of Systems Review of Systems Narrative: Pertinent positive and negative findings as per HPI Patient History Medical History Calcium pyrophosphate deposition disease (CPPD) Medicare annual wellness visit, subsequent Dense breast tissue on mammogram Vaginal atrophy Spondylolisthesis History of calcium pyrophosphate deposition disease (CPPD) (2010) Abnormal Pap smear of cervix (~1984) Hypothyroidism (1999) Herpes (1978) Chronic back pain (1999) Shoulder pain (~1969) Left bundle branch block (LBBB) (2002) Surgical History H/O bilateral breast implants Anesthesia complication Status post breast biopsy (1994) History of breast augmentation (2005) Status post breast biopsy (2004) Status post cholecystectomy (1979) History of bowel resection (1979) Status post appendectomy (1952) History of tonsillectomy Family History Brother Age: 81 Arrhythmia Father Diabetes mellitus Heart disease High cholesterol Stroke Grandfather Diabetes mellitus Stroke Grandmother Diabetes mellitus Stroke Grandfather Pneumonia Grandmother Leukemia Mother Head injury Aneurysm Social History Smoking Status: Former smoker Smoking Status: Former smoker Exam Initial Vital Signs Initial Vital Signs: Vital Signs Temperature 97.7 F 06/08/24 13:41 Pulse Rate 85 06/08/24 13:41 Respiratory Rate 17 06/08/24 13:41 Blood Pressure 170/79 H 06/08/24 13:41 Pulse Oximetry 98 06/08/24 13:41 Oxygen Delivery Method Room Air 06/08/24 13:41 General: Healthy appearing, in no acute distress. Able to give a complete and coherent history. Well-nourished well-developed HEENT: Moist mucous membranes, normal sclera with reactive pupils, dizziness is noted without nystagmus when lying flat. With turning to the right she has increased dizziness and minimal nystagmus appreciated. No symptoms with turning to the left Neck: No cervical adenopathy Respiratory: Lungs are clear to auscultation, Cardiac: Regular rate and rhythm Abdomen: Soft, nontender, Skin: Warm and dry, no rashes Neurologic: Grossly neurologically intact with no obvious asymmetries or abnormalities beyond the positional vertigo described above Extremities: No trauma, well perfused Psych: Cooperative, appropriate insight and affect Course Orders Ordered: ED Orders 06/08/24 13:46 XR chest 1V Stat EKG-12 Lead Stat 06/08/24 13:58 Complete Blood Count AUTO DIFF Stat Comprehensive Metabolic Panel Stat Lipase Stat Magnesium Stat NT-proBNP (BNP-Adult 18+) Stat PTT Partial Thromboplastin Jaron Stat Prothrombin Time INR Stat Troponin & CK Cardiac Panel Stat Vital Signs Vital signs: Vital Signs - 8 hr 06/08/24 13:41 Temperature 97.7 F Pulse Rate 85 Respiratory Rate 17 Blood Pressure 170/79 H Pulse Oximetry 98 Oxygen Delivery Method Room Air Medical Decision Making Lab Data 06/08/24 13:58 06/08/24 13:58 Labs: Lab Results 06/08/24 Range/Units 13:58 WBC 9.8 (4.5-11.0) X10^3/uL RBC 4.59 (4.0-5.2) X10^6/uL Hgb 15.0 (12.0-16.0) g/dL Hct 44.8 (36-46) % MCV 97.6 (80-100) fL MCH 32.8 (26-34) PG MCHC 33.6 (30-36) % RDW 12.9 (11.6-14.8) % Plt Count 328 (150-400) X10^3/uL Neut % (Auto) 79.9 H (50-75) % Lymph % (Auto) 15.2 L (25-40) % [place] % (Auto) 4.2 (3-14) % Eos % (Auto) 0.3 L (2-4) % Baso % (Auto) 0.4 (0-2) % Neut # (Auto) 7800 H (8378-0368) /uL Lymph # (Auto) 1500 (5331-0166) /uL [place] # (Auto) 400 (0-900) /uL Eos # (Auto) 0 (0-450) /uL Baso # (Auto) 0 (0-100) /uL PT 11.5 (9.4-12.5) SECONDS INR 1.0 (0.9-1.3) APTT 32 (25.1-36.5) SECONDS Sodium 134 L (137-145) mmol/L Potassium 4.1 (3.4-5.1) mmol/L Chloride 98 (98-107) mmol/L Carbon Dioxide 28 (22-32) mmol/L BUN 20 H (7-17) mg/dL Creatinine 0.60 (0.52-1.04) mg/dL Estimated GFR > 60 (>60) mL/min BUN/Creatinine Ratio 33.3 H (6-22) Glucose 113 H (80-110) mg/dL Calcium 9.3 (8.4-10.2) mg/dL Magnesium 2.0 (1.6-2.3) mg/dL Total Bilirubin 0.4 (0.2-1.3) mg/dL AST 35 (14-36) IU/L ALT 28 (<35) IU/L Alkaline Phosphatase 71 (38-126) U/L Total Creatine Kinase 62 (30-135) U/L Troponin I < 0.012 (0.01-0.034) ng/mL NT-Pro-B Natriuret Pep 193 (<450) pg/mL Total Protein 7.9 (6.3-8.2) g/dL Albumin 4.7 (3.5-5.0) g/dL Globulin 3.2 (1.7-4.1) g/dL Albumin/Globulin Ratio 1.5 (1.0-2.8) Lipase 92 (23-300) U/L [facility] Narrative Medical decision making narrative: CC: Dizziness Complicating co-morbidities: Recent upper respiratory infection, audiology appointment yesterday Data collected from: patient, daughter Medical records reviewed: Cardiology notes from May 13, 2023 reviewed Echo 04/2024: Interpretation Summary The left ventricle is normal in size. The left ventricular ejection fraction is normal. The ejection fraction is estimated to be 60-65%. There has been no significant change in LVEF since the previous exam. The right ventricle is normal in size and function. There is mild to moderate mitral regurgitation. Compared to the prior echo study, there has been no change in the severity of mitral regurgitation. There is moderate tricuspid regurgitation. Compared to the prior echo exam, there has been no change in TR severity. The right ventricular systolic pressure is estimated to be at least 35 mmHg based on an estimated right atrial pressure of 3 mm Hg. Previously 37 mmHg. Differential considered: Orthostatic hypotension, sepsis, acute coronary syndrome, cardiac syncope, benign positional vertigo, other viral syndrome Exam documented above, pertinent findings include: Patient appears quite healthy and sitting after initial exam has no symptoms whatsoever. With provocative maneuvers for 9 positional vertigo she does have mild symptoms to the right Lab Test results independently reviewed as above. Pertinent findings: CBC is unremarkable Chemistries are reassuring Troponin is undetectable BNP is low Independently reviewed EKG: Sinus rhythm with bundle branch block as noted previously, no significant changes rate of 80 Imaging studies independently reviewed: Chest x-ray is reassuring with no cardiomegaly Treatments: [place]-Hallpike maneuver performed in the emergency department with slight relief of symptoms Oral meclizine Discussion: 78-year-old woman with recently resolved upper respiratory infection, positive positional vertigo with provocative maneuvers. Cardiac workup as well as lab work looking for electrolyte abnormalities unremarkable. No signs of orthostatic hypotension or sepsis. At this point I think that her most likely diagnosis is benign positional vertigo likely related to recently resolved upper respiratory infection with continued inner ear noninfected fluid. Discussed use of Jose maneuvers, meclizine for continued vertiginous feelings beyond this an anticipated course of resolution. There was no evidence of stroke or additional findings that would suggest need for advanced imaging or hospitalization and she is safe for discharge Discharge Plan Departure Patient Disposition: Home Clinical Impression: Benign paroxysmal positional vertigo Qualifiers: Laterality: right Qualified Code(s): H81.11 - Benign paroxysmal vertigo, right ear Instructions: DI for Benign Paroxysmal Positional Vertigo Activity Restrictions/Additional Instructions: Thank you for coming in today Based on your physical exam I believe you have benign positional vertigo. We did a [place]-Hallpike maneuver in the emergency department. Your symptoms are worse to the right, so you need to do the turns to the right. If you [employer] and type in [place]-Hallpike maneuver or benign positional vertigo you can get lots of examples of ways to do this procedure. Doing it a couple times a day can be helpful until the symptoms are resolved. I have given you a prescription for meclizine, this is pill that can help with dizziness and nausea because of the dizziness. If it is helpful you are welcome to use it prescription was sent to [facility] With the rest of your workup I did not see anything life-threatening such as a stroke, heart attack, significant infection or electrolyte abnormalities. If you find that you are getting worse or develop any new symptoms, please feel free to return to the emergency department for further evaluation. Prescriptions: New meclizine 25 mg tablet 25 mg PO BID PRN (Reason: dizziness) Qty: 30 0RF No Action trazodone 50 mg tablet 50 mg PO BEDTIME PRN (Reason: insomnia) Qty: 30 11RF levothyroxine 112 mcg tablet 112 mcg PO DAILY Qty: 90 3RF liothyronine 5 mcg tablet 7.5 mcg PO DAILY Qty: 135 3RF Rx Instructions: TAKE 1 TABLET DAILY EACH MORNING FOR THYROID. TAKE ONE HOUR PRIOR TO ANY OTHER MEDICATIONS, FOOD OR LIQUIDS. celecoxib [Celebrex] 200 mg capsule 200 mg PO Q DAY Qty: 90 1RF tretinoin [Retin-A] 0.025 % gel 1 applic topical BEDTIME Qty: 45 3RF CMP Estriol Vaginal Pearls 1mg 1 mg vaginal 2XW Qty: 30 3RF Rx Instructions: Insert 1 corina vaginally at bedtime twice weekly. acyclovir 400 mg tablet See Rx Instructions .ROUTE .COMPLEX Qty: 60 1RF Dose Instruction: TAKE ONE TABLET FIVE TIMES DAILY NEEDED FOR OUTBREAK Rx Instructions: TAKE ONE TABLET FIVE TIMES DAILY NEEDED FOR OUTBREAK. May take 1 tab po bid during times of prevention polyethylene glycol 3350 [Miralax] 17 gram/dose powder PO Estradiol Vaginal Cream 1 mg topical 2XW Qty: 2 3RF Rx Instructions: 1 mg/ml apply twice weekly. Referrals: Robin Vazquez MD [Primary Care Provider] - Stand Alone Forms: Patient Portal/API/Survey
[2024-06-08] MEDS: MECLIZINE HCL 12.5 MG TABLET 25 MG PO (15:02)
[2024-06-08 15:14] VITALS: BP 154/67; PULSE 75; RESP 18; O2SAT 98
[2024-06-08 15:16] VITALS: BP 156/74; PULSE 76; RESP 16; O2SAT 98
== END 2024-06-08 15:16 | disposition home or self-care (01) ==
PROVIDERS: Emergency Provider Emergency Medicine; PCP Family Medicine
DX: H81.11 Benign paroxysmal vertigo, right ear (principal); R55 Syncope and collapse; R07.9 Chest pain, unspecified; I44.7 Left bundle-branch block, unspecified
CPT/HCPCS: 36415; 71045; 80053; 82550; 83690; 83735; 83880; 84484; 85025; 85610; 85730; 93005; 93010; 99283; 99284

== ENCOUNTER → 2024-07-30 10:45 | Outpatient (ROUT) | payer MEDICARE, SELFPAY ==
[2024-08-02 13:41] LABS: Fecal Immunochemical Test Negative (Negative)
== END ==
PROVIDERS: PCP Family Medicine; Visit Provider Family Medicine
DX: Z12.11 Encounter for screening for malignant neoplasm of colon (principal)
CPT/HCPCS: 82274

== ENCOUNTER → 2024-12-31 09:13 | Outpatient (CLI) | payer MEDICARE, SELFPAY ==
--- NOTE | 2024-12-31 09:16 | DI.MG.S_ITS ---
US breast LT limited, MM diagnostic mammo implant BI: 12/31/2024 BI-RADS: 2 CLINICAL: 79-year old female for bilateral diagnostic mammogram and left diagnostic breast ultrasound. Tyrer-Cuzick lifetime risk of 0.7%. No personal or first- degree family history of breast cancer. The patient reports a single instance of spontaneous clear nipple discharge in the left breast a few weeks ago after physical activity. The patient has bilateral implants. The patient had a prior left breast biopsy. PRIOR EXAMS 07/11/2023, 05/09/2022, 05/08/2021, 01/14/2020. MAMMOGRAPHY TECHNIQUE: 2D and 3D (tomosynthesis) digital mammographic views obtained, with additional images as needed for full coverage. Current study was also evaluated with a Computer Aided Detection (CAD) system. ULTRASOUND TECHNIQUE TARGETED Left Breast Ultrasound: Real-time ultrasound exam was performed focused to area of clinical and/or imaging concern. Real-time olson scale imaging of the area of clinical interest was performed with image documentation. DENSITY C. The breasts are heterogeneously dense, which may obscure small masses. MAMMOGRAPHY FINDINGS Right: There are no suspicious masses, calcifications, or other findings in the breast. Left (finding-1): Central, Retroareolar, Far Anterior depth: There is no suspicious mammographic finding to account for concern by the patient of nipple discharge. No suspicious mass, asymmetry, microcalcification, or other abnormality seen. ULTRASOUND FINDINGS Left (finding-1): Central, Retroareolar: There is no sonographic abnormality to account for concern by the patient of nipple discharge. IMPRESSION: Right * No evidence of malignancy with benign findings. Left * No evidence of malignancy. RECOMMENDATIONS Left * Clinical follow-up is recommended, and further management of nipple discharge should be based on the results of clinical evaluation. If nipple discharge persists and/or increases in clinical suspicion, further clinical evaluation should be considered and an MRI breast with and without contrast may be obtained. Bilateral * Annual screening mammography. COMMENTS: Findings and recommendations were conveyed to the patient during today's evaluation. OVERALL ASSESSMENT CATEGORY BI-RADS-2: Benign. [employer] recommends annual screening mammography beginning at age 40 for women with average risk of breast cancer. ELECTRONICALLY SIGNED: Ruthy Walter M.D. on 12/31/2024 at 03:33:05 PM PT Interpreting Station ID: [id number]
== END ==
PROVIDERS: PCP Family Medicine; Referring Provider Obstetrics & Gynecology; Visit Provider Obstetrics & Gynecology
DX: N64.52 Nipple discharge (principal); R92.2 Inconclusive mammogram; R92.333 Mammographic heterogeneous density, bilateral breasts; Z98.82 Breast implant status
CPT/HCPCS: 76642; 77066; G0279

== ENCOUNTER 2025-04-12 02:11 | Emergency (ER) | payer MEDICARE, SELFPAY ==
--- NOTE | 2025-04-12 02:18 | ED_ITS ---
HPI - Dizziness General Chief Complaint: Dizziness Stated Complaint: per pt Vertigo Spasm Time Seen by Provider: 04/12/25 02:15 History of Present Illness HPI Narrative: 79-year-old female patient with a history of hypothyroidism, Sjogren syndrome and previous vertigo episode who complains of spinning dizziness/vertigo since 11:00 p.m.. She tried performing an Jose maneuver at home more than once and it only made things worse. Currently her symptoms have subsided but are still present but improved. No other complaint. No visual change or tinnitus. No problem ambulating. Related Data Home Medications ?Medication ?Instructions ?Recorded ?Confirmed polyethylene glycol 3350 17 PO 01/29/18 07/30/24 gram/dose oral powder (Miralax) Previous Rx's ?Medication ?Instructions ?Recorded trazodone 50 mg tablet 50 mg PO BEDTIME PRN insomni a #30 05/08/23 tabs acyclovir 400 mg tablet See Rx Instructions .Route 1 05/30/23 .COMPLEX #60 tabs tretinoin 0.025 % topical gel 1 applic topical BEDTIME Acne #45 04/26/24 (Retin-A) grams levothyroxine 112 mcg tablet 112 mcg PO DAILY #90 tabs 07/12/24 liothyronine 5 mcg tablet 7.5 mcg (1.5 x 5 mcg) PO PAULINO LY 07/20/24 #135 tabs CMP Estriol Vaginal Pearls 1 mg vaginal 2XW HRT #30 da ys 12/07/24 celecoxib 200 mg capsule (Celebrex) 200 mg PO Q DAY #9 0 caps 01/13/25 Allergies Allergy/AdvReac Type Severity Reaction Status Date / Time kiwi Allergy Severe anaphlaxis Verified 07/30/24 10:48 Sulfa (Sulfonamide Allergy Intermediate Hives Verified 07/30/24 10:48 Antibiotics) ciprofloxacin (From Cipro) AdvReac bad for Verified 07/30/24 10:48 joints wine AdvReac throat Uncoded 07/30/24 10:48 clogs up and I lose my voice Review of Systems Review of Systems ROS Unobtainable: All systems reviewed & are unremarkable except as noted in HPI and below Neurologic Neurologic: Reports as per HPI Patient History Medical History Calcium pyrophosphate deposition disease (CPPD) Medicare annual wellness visit, subsequent Dense breast tissue on mammogram Vaginal atrophy Spondylolisthesis History of calcium pyrophosphate deposition disease (CPPD) (2010) Abnormal Pap smear of cervix (~1984) Hypothyroidism (1999) Herpes (1978) Chronic back pain (1999) Shoulder pain (~1970) Left bundle branch block (LBBB) (2002) Surgical History H/O bilateral breast implants Anesthesia complication Status post breast biopsy (1994) History of breast augmentation (2005) Status post breast biopsy (2004) Status post cholecystectomy (1979) History of bowel resection (1979) Status post appendectomy (1952) History of tonsillectomy Family History Brother Age: 81 Arrhythmia Father Diabetes mellitus Heart disease High cholesterol Stroke Grandfather Diabetes mellitus Stroke Grandmother Diabetes mellitus Stroke Grandfather Pneumonia Grandmother Leukemia Mother Head injury Aneurysm Exam Narrative Exam Narrative: General: Alert and conversant. No distress. Appears well nourished and well hydrated Craniofacial: No evidence of trauma. Nontender and no swelling. Eyes: PERRLA EOMI conjunctiva clear no nystagmus HEENT: Tragus, pinnae nontender. Tympanic membranes normal appearance. Oropharynx clear with no swelling, exudate or asymmetry of the pharynx. Nares clear. No sinus tenderness Neck: No tenderness or adenopathy. No meningismus. Lungs: Clear to auscultation with good air movement. No wheezing, rales or rhonchi. No respiratory distress Cardiac: Regular rate and rhythm with no appreciable murmur or gallop Neuro: Alert and oriented. Cranial nerves, motor, sensory and cerebellar all grossly intact. No focal deficit Skin: Warm and normal color. No rashes Psychological: Normal affect and interaction. No evidence of delusion or psychosis. Normal mood. Initial Vital Signs Initial Vital Signs: Vital Signs Temperature 97.5 F L 04/12/25 02:21 Pulse Rate 86 04/12/25 02:21 Respiratory Rate 16 04/12/25 02:21 Blood Pressure 191/82 H 04/12/25 02:21 Pulse Oximetry 97 04/12/25 02:21 Oxygen Delivery Method Room Air 04/12/25 02:21 Course Course Course Narrative: 03:20 Jose maneuver performed to the left. During the procedure she had significant worsening of her vertigo. 03:45 Patient feels slightly nauseated and a little off balance but no spinning currently. Orders Ordered: Discontinued Medications Diazepam (Diazepam 5 Mg Tablet) 5 mg PO NOW ONE Stop: 04/12/25 03:46 Last Admin: 04/12/25 03:56 Dose: 5 mg Meclizine HCl (Meclizine Hcl 12.5 Mg Tablet) 25 mg PO NOW ONE Stop: 04/12/25 02:21 Last Admin: 04/12/25 02:24 Dose: 25 mg Meclizine HCl (Meclizine Hcl 12.5 Mg Tablet) 25 mg PO NOW ONE Stop: 04/12/25 03:46 Last Admin: 04/12/25 03:56 Dose: 25 mg Vital Signs Vital signs: Vital Signs - 8 hr 04/12/25 02:21 Temperature 97.5 F L Pulse Rate 86 Respiratory Rate 16 Blood Pressure 191/82 H Pulse Oximetry 97 Oxygen Delivery Method Room Air MDM - Dizziness MDM Narrative Medical decision making narrative: Patient has vertigo which is typical of peripheral vertigo. We tried an Jose maneuver which helped somewhat but not completely. After 2 doses of meclizine and 5 mg of diazepam she feels much improved as far as the vertigo goes. I do not believe she needs has scan given no other symptoms that would point towards a central cause. She is able to ambulate. No nystagmus. Patient will follow up with primary care. She already has meclizine prescribed and will use as needed. Return to the ER if worse Discharge Plan Departure Patient Disposition: Home Clinical Impression: Vertigo Instructions: DI for Vertigo Activity Restrictions/Additional Instructions: Plan: Hydration, rest and supportive care. Continue meclizine as needed. Follow up closely with your provider. May need referral to ENT if symptoms persist. Return to the ER if worse Prescriptions: No Action trazodone 50 mg tablet 50 mg PO BEDTIME PRN (Reason: insomnia) Qty: 30 11RF tretinoin [Retin-A] 0.025 % gel 1 applic topical BEDTIME Qty: 45 3RF levothyroxine 112 mcg tablet 112 mcg PO DAILY Qty: 90 3RF liothyronine 5 mcg tablet 7.5 mcg PO DAILY Qty: 135 3RF Rx Instructions: TAKE 7.5mcg DAILY EACH MORNING ONE HOUR PRIOR TO ANY OTHER MEDICATIONS, FOOD OR LIQUIDS. FOR THYROID. CMP Estriol Vaginal Pearls 1 mg vaginal 2XW Qty: 30 3RF Rx Instructions: Insert 1 corina vaginally at bedtime twice weekly. celecoxib [Celebrex] 200 mg capsule 200 mg PO Q DAY Qty: 90 1RF acyclovir 400 mg tablet See Rx Instructions .ROUTE .COMPLEX Qty: 60 1RF Dose Instruction: TAKE ONE TABLET FIVE TIMES DAILY NEEDED FOR OUTBREAK Rx Instructions: TAKE ONE TABLET FIVE TIMES DAILY NEEDED FOR OUTBREAK. May take 1 tab po bid during times of prevention polyethylene glycol 3350 [Miralax] 17 gram/dose powder PO Referrals: Robin Vazquez MD [Primary Care Provider, Family Practice] Stand Alone Forms: Patient Portal/API
[2025-04-12 02:19] VITALS: BP 191/82; PULSE 93; O2SAT 97
[2025-04-12 02:21] VITALS: BP 191/82; PULSE 86; RESP 16; TEMP 36.4; O2SAT 97; BMI 21.1
[2025-04-12] MEDS: MECLIZINE HCL 12.5 MG TABLET 25 MG PO ×2 (02:24→03:56)
[2025-04-12 02:30] VITALS: BP 165/59; PULSE 77; O2SAT 97
--- NOTE | 2025-04-12 02:30 | PC.NURSE ---
pt states she woke this am and went to get up and became dizzy, has a hx of vertigo and attempted maneuvers at home without relief pt states when she lays down the dizziness returns with nausea
[2025-04-12 03:00] VITALS: BP 155/69; PULSE 71; O2SAT 96
[2025-04-12 04:00] VITALS: BP 175/79; PULSE 80; O2SAT 97
[2025-04-12 04:30] VITALS: BP 128/60; PULSE 79; O2SAT 92
== END 2025-04-12 04:53 | disposition home or self-care (01) ==
PROVIDERS: Emergency Provider Emergency Medicine; PCP Family Medicine
DX: R42 Dizziness and giddiness (principal)
CPT/HCPCS: 99283

== ENCOUNTER → 2025-05-03 10:19 | Outpatient (CLI) | payer MEDICARE, SELFPAY | LOC: PHYS 10:21 | PROVIDERS: Family Provider Family Medicine; PCP Family Medicine; Referring Provider Family Medicine; Visit Provider Family Medicine | DX: Z13.89 Encounter for screening for other disorder (principal) ==